=== PATIENT | male | born 1965 | race Caucasian/White ===

== ENCOUNTER → 2018-02-02 10:16 | Outpatient (CLI) | payer OTHER, MEDICAID, SELFPAY ==
[2018-02-02 10:59] LABS: Add Manual Diff / Slide Review NO; Appearance Urine UA CLEAR; Basophils Percent Auto 0.6 % (0-2); Bilirubin Urine UA NEGATIVE (NEGATIVE); Color Urine UA YELLOW; Eosinophils Percent Auto 0.9 % (2-4); Glucose Urine UA NEGATIVE (Normal); Hematocrit 41.7 % (41-53); Hemoglobin 14.5 g/dL (13.5-17.5); Ketones Urine UA TRACE (NEGATIVE); Leukocyte Esterase Urine UA TRACE (NEGATIVE); Lymphocytes Percent Auto 10.6 % (25-40); Mean Corpuscular HGB Conc 34.8 % (30-36); Mean Corpuscular Hemoglobin 34.6 PG (26-34); Mean Corpuscular Volume 99.4 fL (80-100); Monocytes Percent Auto 13.7 % (3-14); Neutrophils Absolute Auto 8800 /uL (3000-5900); Neutrophils Percent Auto 74.2 % (50-75); Nitrite Urine UA Negative (Negative); Occult Blood Urine UA NEGATIVE (Negative); Platelet Count 58 X10^3/uL (150-400); Protein Urine UA NEGATIVE (Negative); Red Blood Cell Count 4.19 X10^6/uL (4.5-5.9); White Blood Cell Count 11.8 X10^3/uL (4.5-11.0); pH Urine UA 5.5 (4.5-8.0)
[2018-02-02 11:05] LABS: Bacteria Urine None Seen; INR 1.3 (0.9-1.3); Prothrombin Time 13.7 SECONDS (10.1-12.7); RBC Urine None Seen (0-5/HPF); WBC Urine None Seen (0-5/HPF)
[2018-02-02 11:06] LABS: Culture Indicated Urine Cult Not Indicated
[2018-02-02 11:07] LABS: Ammonia (NH3) < 9.0 umol/L (9-30)
[2018-02-02 11:28] LABS: Alanine Aminotransferase 30 IU/L (21-72); Albumin 4.6 g/dL (3.5-5.0); Albumin Globulin Ratio 0.9 (1.0-2.8); Alkaline Phosphatase 131 U/L (38-126); Aspartate Aminotransferase 111 IU/L (17-59); BUN Creatinine Ratio 13.3 (6-22); Bilirubin Total 2.4 mg/dL (0.2-1.3); Blood Urea Nitrogen 8 mg/dL (9-20); Calcium 9.7 mg/dL (8.4-10.2); Carbon Dioxide 28 mmol/L (22-32); Chloride 98 mmol/L (98-107); Cholesterol 190 mg/dL (140-199); Estimated Glomerular Filt Rate > 60.0 mL/min (>60); Globulin 5.4 g/dL (1.7-4.1); Glucose 114 mg/dL (70-100); HDL Cholesterol 45 mg/dL (40-60); HEMOLYSIS < 15 (0-50); LDL Cholesterol Calculated 118 mg/dL (<100); Potassium 4.6 mmol/L (3.4-5.1); Sodium 142 mmol/L (137-145); Triglycerides 134 mg/dL (35-150)
== END ==
PROVIDERS: Family Provider Family Medicine; PCP Family Medicine; Visit Provider Family Medicine
DX: F10.20 Alcohol dependence, uncomplicated (principal); I10 Essential (primary) hypertension; Z51.81 Encounter for therapeutic drug level monitoring
CPT/HCPCS: 80053; 80061; 81003; 81015; 82140; 85025; 85610

== ENCOUNTER → 2018-04-27 13:01 | Outpatient (CLI) | payer OTHER, MEDICAID, SELFPAY ==
--- NOTE | 2018-04-27 13:03 | DI.ECHO.S_ITS ---
[place] [facility]---------+ [facility] +---------+ : : [address] : [address] : : : : [id number] : : : : Phone: [phone] Echocardiogram Report + + :Name: SHELLI DELGADO Study Date: 04/27/2018 Height: 66 in : :[facility] Exam Location: IS Weight: 120 lb: : Gender: Male BSA: 1.6 m2 : :: 1965 Age: 53 yrs BP: 98/62 mmHg: :Reason For Study: CHEST PAIN : :Ordering Physician: Ashley : :Simon Performed By: Sena Buck : :Referring: ASHLEY PENALOZA : + + Interpretation Summary The left ventricle is normal in size, wall thickness, and systolic function without any focal wall motion abnormalities. The ejection fraction is estimated to be 60-65%. The right ventricle is normal in size and function. No significant valvular pathology seen. Procedure: A two-dimensional transthoracic echocardiogram with color flow and Doppler was performed. The study quality was technically good. There is no prior echocardiogram noted for this patient. The patient was in normal sinus rhythm during the exam. Left Ventricle: The left ventricle is normal in size, wall thickness, and systolic function without any focal wall motion abnormalities. There is no thrombus. The ejection fraction is estimated to be 60-65%. Diastolic parameters suggest probable normal left ventricular diastolic function and normal filling pressures. Right Ventricle: The right ventricle is normal in size and function. Atria: The left atrium is borderline dilated. The right atrium is normal in size. There is no Doppler evidence for an interatrial shunt. Mitral Valve: The mitral valve is normal. There is trace mitral regurgitation. Aortic Valve: The aortic valve opens well. The aortic valve is slightly calcified. There is no aortic valve stenosis. No aortic regurgitation is present. Tricuspid Valve: The tricuspid valve is normal. There is trace tricuspid regurgitation. The right ventricular systolic pressure is estimated to be at least 24 mmHg based on an estimated right atrial pressure of 3 mm Hg. Pulmonic Valve: The pulmonic valve leaflets are thin and pliable; valve motion is normal. There is trace pulmonic regurgitation. Great Vessels: The aortic root is normal size. The ascending aorta is normal in size. The aortic arch could not be visualized. The pulmonary artery is normal size. The IVC is of normal diameter and collapses greater than 50% with a sniff. This suggests a low right atrial pressure of 3 mm Hg. Pericardium/ Pleura There is no pericardial effusion. There is no pleural effusion. MMode/2D Measurements & Calculations LVIDd: 4.3 cm LVOT diam: 2.1 cm LVIDs: 2.8 cm Ao root diam: 3.7 cm FS: 34.7 % asc Aorta Diam: 3.2 cm EPSS: 0.25 cm IVSd: 0.74 cm LVPWd: 0.83 cm LV barfield. diameter/BSA (cm/m^2): 2.7 LV sys. diameter/BSA (cm/m^2): 1.7 LA A2 area: 21.7 cm2 RA long axis: 4.5 cm LA A4 area: 16.5 cm2 RA area: 13.4 cm2 LA length (vol): 5.2 cm RA vol: 33.6 ml LA vol: 58.4 ml RA : 20.9 ml/m2 LA vol index: 36.3 ml/m2 IVC diam: 1.9 cm RVD1 (basal): 3.3 cm RVD2 (mid): 2.6 cm TAPSE: 2.3 cm Doppler Measurements & Calculations Ao V2 max: 94.9 cm/sec LVOT Max George: 96.8 cm/sec Ao V2 mean: 58.6 cm/sec LV V1 max P.7 mmHg Ao max P.6 mmHg LV V1 VTI: 18.2 cm Ao mean P.7 mmHg BILL(I,D): 3.4 cm2 Ao V2 VTI: 17.9 cm BILL(V,D): 3.5 cm2 sev ratio: 1.0 BILL indexed to BSA (cm^2/m^2): 2.1 MV E max george: 76.4 cm/sec TR max george: 228.7 cm/sec MV A max george: 65.1 cm/sec TR max P.9 mmHg MV E/A: 1.2 PA V2 max: 74.2 cm/sec Med Peak E' George: 9.6 cm/sec PA V2 mean: 51.6 cm/sec E/E' med: 8.0 PA mean P.2 mmHg Lat Peak E' George: 13.3 cm/sec PA pr(Accel): 9.1 mmHg E/E' lat: 5.8 E/e' average: 6.9 MV dec time: 0.27 sec MV P1/2t: 78.8 msec MV P1/2t max george: 76.0 cm/sec MVA(P1/2t): 2.8 cm2 Reading Physician:RICHA
== END ==
PROVIDERS: Family Provider Family Medicine; PCP Family Medicine; Visit Provider Family Medicine
DX: R07.9 Chest pain, unspecified (principal)
CPT/HCPCS: C8929; Q9957

== ENCOUNTER → 2018-11-16 08:34 | Outpatient (CLI) | payer OTHER, MEDICAID, SELFPAY ==
[2018-11-16 09:33] LABS: Hemoglobin 12.4 g/dL (13.5-17.5); Mean Corpuscular HGB Conc 34.6 % (30-36); Mean Corpuscular Hemoglobin 34.6 PG (26-34); Mean Corpuscular Volume 100.1 fL (80-100); Platelet Count 64 X10^3/uL (150-400); Red Blood Cell Count 3.59 X10^6/uL (4.5-5.9); Red Cell Distribution Width 14.2 % (11.6-14.8); White Blood Cell Count 7.5 X10^3/uL (4.5-11.0)
[2018-11-16 09:41] LABS: INR 1.4 (0.9-1.3); Prothrombin Time 15.8 SECONDS (10.1-12.7)
[2018-11-16 09:44] LABS: PTT Partial Thromboplastin Tim 38 SECONDS (26.4-36.2)
[2018-11-16 09:47] LABS: Alanine Aminotransferase 24 IU/L (21-72); Albumin 3.6 g/dL (3.5-5.0); Albumin Globulin Ratio 0.8 (1.0-2.8); Alkaline Phosphatase 135 U/L (38-126); Aspartate Aminotransferase 93 IU/L (17-59); BUN Creatinine Ratio 6.7 (6-22); Bilirubin Total 1.8 mg/dL (0.2-1.3); Blood Urea Nitrogen 4 mg/dL (9-20); Calcium 8.1 mg/dL (8.4-10.2); Carbon Dioxide 27 mmol/L (22-32); Chloride 102 mmol/L (98-107); Estimated Glomerular Filt Rate > 60.0 mL/min (>60); Globulin 4.6 g/dL (1.7-4.1); Glucose 99 mg/dL (70-100); HEMOLYSIS < 15 (0-50); Potassium 3.7 mmol/L (3.4-5.1); Sodium 140 mmol/L (137-145); Total Protein 8.2 g/dL (6.3-8.2)
== END ==
PROVIDERS: PCP Family Medicine; Visit Provider Nurse Practitioner Family
DX: K42.0 Umbilical hernia with obstruction, without gangrene (principal)
CPT/HCPCS: 36415; 80053; 85027; 85610; 85730

== ENCOUNTER → 2018-11-20 07:15 | Outpatient (CLI) | payer OTHER, MEDICAID, SELFPAY ==
--- NOTE | 2018-11-20 07:17 | DI.US.S_ITS ---
PROCEDURE: US ABDOMEN LIMITED INDICATIONS: EVALUATE UMBILICAL HERNIA TECHNIQUE: Real-time focused scanning was performed of the abdomen, with image documentation. COMPARISON: [facility], US, ABDOMEN COMPLETE, 07/13/2016, 8:43. [facility], US, ABDOMEN COMPLETE, 09/19/2016, 8:19. FINDINGS: There is a moderate-sized paraumbilical hernia with the hernia neck measuring 5.4 mm. There is a ascitic fluid within the hernia sac. A bowel loop is seen extruding into the hernia sac with Valsalva with the patient upright. There is moderate amount of ascites. IMPRESSION: 1. Periumbilical hernia is present containing ascites. With Valsalva, there is a loop of bowel extruding into the hernia. The hernia neck measures 5.4 mm. 2. Moderate amount of ascites. Dictated by: Ping Soalres M.D. on 11/20/2018 at 8:53 Approved by: Ping Solares M.D. on 11/20/2018 at 8:58
== END ==
PROVIDERS: PCP Family Medicine; Visit Provider Nurse Practitioner Family
DX: K42.0 Umbilical hernia with obstruction, without gangrene (principal); R18.8 Other ascites
CPT/HCPCS: 76705

== ENCOUNTER → 2019-02-26 16:52 | Outpatient (CLI) | payer OTHER, MEDICAID, SELFPAY ==
[2019-02-26 17:25] LABS: Hematocrit 32.7 % (41-53); Hemoglobin 11.1 g/dL (13.5-17.5); Mean Corpuscular HGB Conc 33.9 % (30-36); Mean Corpuscular Hemoglobin 34.9 PG (26-34); Mean Corpuscular Volume 102.9 fL (80-100); Platelet Count 66 X10^3/uL (150-400); Red Blood Cell Count 3.18 X10^6/uL (4.5-5.9); Red Cell Distribution Width 15.5 % (11.6-14.8)
[2019-02-26 17:39] LABS: Alanine Aminotransferase 26 IU/L (21-72); Albumin 3.6 g/dL (3.5-5.0); Albumin Globulin Ratio 0.7 (1.0-2.8); Alkaline Phosphatase 133 U/L (38-126); Amylase 72 U/L (30-110); Aspartate Aminotransferase 125 IU/L (17-59); BUN Creatinine Ratio 7.1 (6-22); Bilirubin Total 3.7 mg/dL (0.2-1.3); Blood Urea Nitrogen 5 mg/dL (9-20); Calcium 8.3 mg/dL (8.4-10.2); Carbon Dioxide 27 mmol/L (22-32); Chloride 93 mmol/L (98-107); Estimated Glomerular Filt Rate > 60.0 mL/min (>60); Globulin 5.1 g/dL (1.7-4.1); Glucose 116 mg/dL (70-100); HEMOLYSIS < 15 (0-50); Lipase 273 U/L (23-300); Potassium 3.1 mmol/L (3.4-5.1); Sodium 133 mmol/L (137-145); Total Protein 8.7 g/dL (6.3-8.2)
[2019-02-26 17:47] LABS: Macrocytosis 1+; Neutrophils Absolute Manual 6700 /uL (3000-5900); Total Cells Counted 100
[2019-02-26 17:48] LABS: Platelet Estimate Decreased on smear
[2019-02-26 17:56] LABS: Appearance Urine UA CLEAR; Bilirubin Urine UA 2+ (NEGATIVE); Color Urine UA YELLOW; Glucose Urine UA TRACE g/dL (Negative); Ketones Urine UA TRACE (NEGATIVE); Leukocyte Esterase Urine UA NEGATIVE (NEGATIVE); Nitrite Urine UA NEGATIVE (Negative); Occult Blood Urine UA NEGATIVE (Negative); Protein Urine UA NEGATIVE (Negative); Urobilinogen Urine UA 0.2 E.U./dL (0.2); pH Urine UA 5.5 (4.5-8.0)
[2019-02-26 17:57] LABS: Ictotest Urine Negative (Negative)
[2019-02-28 14:24] LABS: Alpha Fetoprotein 5.9 ng/mL (< 6.1)
== END ==
PROVIDERS: PCP Family Medicine; Visit Provider Family Medicine
DX: F10.20 Alcohol dependence, uncomplicated (principal); K42.0 Umbilical hernia with obstruction, without gangrene; R18.8 Other ascites
CPT/HCPCS: 36415; 80053; 81003; 82105; 82140; 82150; 83690; 85025

== ENCOUNTER → 2019-03-06 10:56 | Outpatient (CLI) | payer OTHER, MEDICAID, SELFPAY ==
--- NOTE | 2019-03-06 11:55 | DI.CT.S_ITS ---
PROCEDURE: CT ABDOMEN PELVIS W CON INDICATIONS: Hernia TECHNIQUE: After the administration of oral and intravenous contrast, 5 mm thick sections acquired from the diaphragms to the symphysis. 5 mm thick coronal and sagittal reformats were performed. For radiation dose reduction, the following was used: automated exposure control, adjustment of mA and/or kV according to patient size. COMPARISON: [facility], , ABDOMEN LIMITED, 11/20/2018, 7:27. FINDINGS: Image quality: Excellent. ABDOMEN: Lung bases: Lung bases are clear. Heart size is normal. Solid organs: Liver is relatively small in size and mildly heterogeneous in enhancement. Nodular margination along the liver borders indicates likelihood of cirrhosis and portal hypertension. 4 quadrant ascites. Gallbladder appears contracted. Biliary system is non-dilated. Pancreas enhances normally. Spleen is normal in size and enhancement. No adrenal nodules. Kidneys are normal in size and enhancement, without hydronephrosis. Peritoneum and bowel: Stomach, small bowel, and colon loops are normal in caliber and wall thickness. No free air. There is moderate ascites throughout the abdomen and pelvis. Slight peritoneal enhancement and thickening is associated. Nodes and vessels: No retroperitoneal or mesenteric adenopathy. Aorta and inferior vena cava are normal in caliber. Miscellaneous: No ventral hernia except for a paraumbilical ovoid fluid collection consistent with a small fluid containing peritoneal hernia at that site. PELVIS: Genitourinary: Bladder wall thickness is normal. Miscellaneous: No inguinal hernias or adenopathy. Bones: No suspicious bony lesions. No vertebral body compression fractures. IMPRESSION: Cirrhosis and portal hypertension is likely present, given the pattern of nodular margination along the liver borders and ascites, and also collateral varices within the upper abdomen best seen in the perisplenic space. The spleen itself is not enlarged, however. Through the abdomen and pelvis a definite focus of infection or neoplasm is not seen. As noted there is a mild degree of peritoneal enhancement and thickening but frequently seen in the setting of cirrhotic ascites. 4 quadrant ascites, small periumbilical fluid containing hernia. Dictated by: Nasim Granados M.D. on 03/06/2019 at 15:15 Approved by: Nasim Granados M.D. on 03/06/2019 at 15:19
== END ==
PROVIDERS: PCP Family Medicine; Visit Provider Family Medicine
DX: K42.9 Umbilical hernia without obstruction or gangrene (principal); R18.8 Other ascites
CPT/HCPCS: 74177; Q9967

== ENCOUNTER 2019-04-20 00:55 | Emergency (ER) | payer OTHER, MEDICAID, SELFPAY ==
[2019-04-20] VITALS (9 sets, daily range): BP systolic 88–104; BP diastolic 58–66; PULSE 82–88; RESP 14–18; TEMP 36.1; O2SAT 94–97
[2019-04-20] MEDS: ONDANSETRON 4 MG/2 ML INJ IV (01:28)
[2019-04-20] MEDS: PANTOPRAZOLE 40 MG VIAL 80 MG IV (01:29)
--- NOTE | 2019-04-20 01:34 | DI.US.S_ITS ---
PROCEDURE: US ABDOMEN COMPLETE INDICATIONS: CIRRHOSIS/ASCITIES TECHNIQUE: Real-time scanning was performed of the abdominal and retroperitoneal organs, with image documentation. COMPARISON: [facility], US, ABDOMEN COMPLETE, 09/19/2016, 8:19. [facility], US, US ABDOMEN LIMITED, 11/20/2018, 7:27. [facility], CT, CT ABDOMEN PELVIS W CON, 03/06/2019, 11:58. FINDINGS: Liver: The liver is echogenic and heterogeneous in appearance with a nodular contour consistent with cirrhosis. Gallbladder: No gallstones or pericholecystic fluid. The gallbladder is incompletely distended with slight wall thickening which may be due to incomplete distention as well as possible sequelae of liver disease. Biliary ducts: Intrahepatic bile ducts are non-dilated. Extrahepatic bile duct caliber measures up to 5 mm. Normal is 6-7 mm or less in diameter, or 10 mm or less post-cholecystectomy. Pancreas: Not well-seen.. Spleen: Spleen is normal in size and homogeneous in echotexture. Kidneys: Right kidney measures 9.9 cm long; left kidney measures 10.8 cm long. No hydronephrosis. Aorta: Not well visualized. Iliacs: Not well visualized. IVC: Not well-visualized. Miscellaneous: There is moderate ascites with fluid visualized in all 4 quadrants. IMPRESSION: 1. Nodular cirrhotic liver redemonstrated with moderate ascites visualized in all 4 quadrants. Dictated by: Fidencio Dodd M.D. on 04/20/2019 at 7:40 Approved by: Fidencio Dodd M.D. on 04/20/2019 at 7:46
[2019-04-20 02:03] LABS: Add Manual Diff / Slide Review NO; Basophils Absolute Auto 400 /uL (0-100); Basophils Percent Auto 4.3 % (0-2); Eosinophils Absolute Auto 300 /uL (0-450); Eosinophils Percent Auto 3.5 % (2-4); Hematocrit 36.2 % (41-53); Hemoglobin 12.8 g/dL (13.5-17.5); Lymphocytes Absolute Auto 1900 /uL (1100-4500); Lymphocytes Percent Auto 21.8 % (25-40); Mean Corpuscular HGB Conc 35.3 % (30-36); Mean Corpuscular Hemoglobin 35.7 PG (26-34); Mean Corpuscular Volume 101.1 fL (80-100); Monocytes Absolute Auto 1400 /uL (0-900); Monocytes Percent Auto 15.9 % (3-14); Neutrophils Absolute Auto 4900 /uL (1500-7000); Neutrophils Percent Auto 54.5 % (50-75); Platelet Count 78 X10^3/uL (150-400); Red Blood Cell Count 3.59 X10^6/uL (4.5-5.9); Red Cell Distribution Width 14.5 % (11.6-14.8); White Blood Cell Count 8.9 X10^3/uL (4.5-11.0)
[2019-04-20 02:04] LABS: Lactate (Lactic Acid) 1.4 mmol/L (0.7-2.1)
[2019-04-20 02:05] LABS: Alanine Aminotransferase 19 IU/L (21-72); Albumin 3.9 g/dL (3.5-5.0); Albumin Globulin Ratio 0.7 (1.0-2.8); Alkaline Phosphatase 154 U/L (38-126); Aspartate Aminotransferase 97 IU/L (17-59); Bilirubin Total 1.7 mg/dL (0.2-1.3); Blood Urea Nitrogen 6 mg/dL (9-20); Calcium 8.7 mg/dL (8.4-10.2); Carbon Dioxide 30 mmol/L (22-32); Chloride 94 mmol/L (98-107); Estimated Glomerular Filt Rate > 60.0 mL/min (>60); Globulin 5.3 g/dL (1.7-4.1); Glucose 115 mg/dL (70-100); HEMOLYSIS < 15 (0-50); Potassium 3.5 mmol/L (3.4-5.1); Sodium 137 mmol/L (137-145); Total Protein 9.2 g/dL (6.3-8.2)
[2019-04-20 02:21] LABS: Ethanol (ETOH) 393 mg/dL
--- NOTE | 2019-04-20 02:22 | ED_ITS ---
HPI - GI Bleed General Chief complaint: GI Bleed Stated complaint: STATES HEMORRAGING FROM RECTUM Time Seen by Provider: 04/20/19 01:00 Source: patient Mode of arrival: Ambulatory Limitations: no limitations History of Present Illness HPI Narrative: 54-year-old male smoker, heavy drinker and known cirrhotic presents with significant bright red bleeding per rectum over the course of the past day or 2. He has become quite fatigued and is dizzy and lightheaded upon standing. He denies use of any blood thinners. He denies any history of significant gastrointestinal bleeding. He denies any red vomit or dark and tarry stool. He does state that he has had colonoscopies in the past which have noted what he thinks were polyps that were fixed. He denies much in the way of significant pain. He has had no fever or chills. He denies vomiting but has been nauseated. MD complaint: gross hematochezia Onset (ago): day(s) Pain Consistency: intermittent Severity: mild Relieving factors: none Exacerbating factors: none Context: liver disease and alcohol abuse Associated symptoms: nausea Treatments Prior to Arrival: none Related Data Home Medications Medication Instructions Recorded Confirmed spironolactone [Aldactone] 100 mg PO QDAY #0 12/07/16 11/30/18 acetaminophen 300 mg-codeine 30 mg 1 tab PO QHS PRN tab 11/15/18 11/30/18 tablet Previous Rx's Medication Instructions Recorded ferrous sulfate 325 mg (65 mg 325 mg PO BID #60 tab 08/27/18 iron) tablet tramadol 50 mg tablet 50 mg PO DAILY #30 tab 11/30/18 furosemide 40 mg tablet 40 mg PO QDAY #30 tab 02/07/19 potassium chloride 10 mEq 10 meq PO BID #20 cap 02/27/19 capsule,extended release metoprolol succinate 50 mg 50 mg PO DAILY #90 tab 04/09/19 tablet,extended release 24 hr Allergies Allergy/AdvReac Type Severity Reaction Status Date / Time tree and shrub pollen Allergy Unknown watery Verified 11/30/18 15:06 eyes, runny nose Review of Systems Constitutional Constitutional: Denies chills, Denies fatigue, Denies fever(s), Denies frequent falls, Denies lethargy, Reports poor appetite and Denies weakness Eyes Eyes: Denies change in vision, Denies eye discharge, Denies irritation and Denies loss of vision ENT Ears, Nose, Mouth, and Throat: Denies change in voice, Denies dizziness, Denies neck pain, Denies sore throat and Denies throat swelling Cardiovascular Cardiovascular: Denies chest pain, Denies irregular heart rhythm, Denies lightheadedness, Denies palpitations, Denies dyspnea, Denies dyspnea on exertion and Denies orthopnea Respiratory Respiratory: Denies cough, Denies dyspnea, Denies dyspnea on exertion and Denies wheezing Gastrointestinal Gastrointestinal: Denies abdominal pain, Reports hematochezia, Denies change in bowel habits, Denies diarrhea, Denies nausea and Denies vomiting Genitourinary Genitourinary: Denies hematuria, Denies flank pain, Denies urinary incontinence and Denies urinary urgency Musculoskeletal Musculoskeletal: Denies back pain, Denies muscle weakness, Denies neck pain, Denies numbness and Denies tingling Integumentary/Breasts Skin/Breast: Denies pruritus, Denies erythema, Denies rash and Denies wounds Neurologic Neurologic: Denies behavioral changes, Denies confusion, Denies dizziness, Denies frequent falls, Denies loss of vision, Denies numbness, Denies tingling and Denies weakness Psychiatric Psychiatric: Denies anxiety, Denies behavioral changes, Denies confusion, Denies depression, Denies homicidal ideation and Denies suicidal ideation Endocrine Endocrine: Denies fatigue, Denies flushing and Denies palpitations Hematologic/Lymphatic Hematologic/Lymphatic: Denies easy bruising Allergic/Immunologic Allergic/Immunologic: Denies urticaria, Denies throat swelling and Denies wheezing [facility] Medical History Chronic back pain (Chronic Unknown) Cirrhosis of liver (Chronic Unknown) COPD (chronic obstructive pulmonary disease) (Chronic Unknown) DDD (degenerative disc disease), lumbar (Chronic Unknown) Eczema (Chronic Unknown) ETOH abuse (Chronic Unknown) Hx of fracture of foot (Resolved ~1982) Hypertension (Chronic Unknown) Liver disease (Chronic Unknown) Surgical History Status post ORIF of fracture of ankle (Resolved ~1986) Family History (Updated 03/15/16 @ 00:00 by Ankit Mckinnon RN) Father Age: 80 Colon cancer Mother Age: 77 Back pain, unspecified back location, unspecified back pain laterality, unspecified chronicity Brother No problems noted. Social History Smoking Status: Current every day smoker Tobacco: How many years used: 35 alcohol intake: current (6-8 ) substance use type: does not use Family History Father Age: 80 Colon cancer Mother Age: 77 Back pain, unspecified back location, unspecified back pain laterality, unspecified chronicity Brother No problems noted. Social History Smoking Status: Current every day smoker Tobacco: How many years used: 35 alcohol intake: current (6-8 ) substance use type: does not use Exam Narrative Exam Narrative: GENERAL: [54-year-old] year old patient appears stated age. Chronically ill, appears unwell. Temporal wasting HEAD: Atraumatic. Normocephalic. EYES: Pupils equal round and reactive. Extraocular motions intact. No scleral icterus. No injection or drainage. ENT: Nose without bleeding, purulent drainage. Throat without erythema, tonsillar hypertrophy or exudate. Airway patent. NECK: Trachea midline. Non tender CARDIOVASCULAR: Regular rate and rhythm without murmurs, gallops, or rubs. RESPIRATORY: Clear to auscultation. Breath sounds equal bilaterally. No wheezes, rales, or rhonchi. GASTROINTESTINAL: Ascites, no warmth, significant pain or erythema, easily reducible umbilical hernia Abdomen soft, non-tender, nondistended. RECTAL: bright red active bleeding, brisk. EXTREMITIES: No edema or joint tenderness. BACK: Nontender without deformity or crepitance. No flank tenderness. NEURO: AOx3. SKIN: No rash or erythema of visible areas Initial Vital Signs Initial Vital Signs: Vital Signs Temperature 97 F L 04/20/19 01:01 Pulse Rate 84 04/20/19 01:01 Respiratory Rate 18 04/20/19 01:01 Blood Pressure 103/63 04/20/19 01:01 Pulse Oximetry 97 04/20/19 01:01 Course Orders Ordered: ED Orders 04/20/19 01:30 Complete Blood Count AUTO DIFF Stat Comprehensive Metabolic Panel Stat Ethanol (ETOH) Stat Lactate (Lactic Acid) Stat Partial Thromboplastin Time Stat Prothrombin Time INR Stat Type and Screen Stat 04/20/19 01:34 US abdomen complete Stat 04/20/19 02:50 Hemoglobin and Hematocrit Stat Pantoprazole Sodium 80 mg/ (Sodium Chloride) 100 mls @ 10 mls/hr IV CONT ROSE Last Admin: 04/20/19 03:55 Dose: 8 mg/hr, 10 mls/hr Documented by: ELYSE Octreotide Acetate 500 mcg/ (Sodium Chloride) 101 mls @ 5.05 mls/hr IV CONT ROSE; Protocol Last Admin: 04/20/19 03:57 Dose: 25 mcg/hr, 5.05 mls/hr Documented by: ELYSE Discontinued Medications Ceftriaxone Sodium/Dextrose (Rocephin) 1 gm in 50 mls @ 100 mls/hr IV NOW ONE Stop: 04/20/19 03:15 Last Infusion: 04/20/19 03:42 Dose: 100 mls/hr Documented by: Admin: 04/20/19 03:10 Dose: 100 mls/hr Documented by: ELYSE Nicotine (Nicoderm) 21 mg TOP NOW ONE Stop: 04/20/19 03:54 Octreotide Acetate (Sandostatin) 50 mcg IV NOW ONE Stop: 04/20/19 02:47 Last Admin: 04/20/19 03:11 Dose: 50 mcg Documented by: ELYSE Ondansetron HCl (Zofran) 4 mg IV NOW ONE Stop: 04/20/19 01:18 Last Admin: 04/20/19 01:28 Dose: 4 mg Documented by: ELYSE Pantoprazole Sodium (Protonix) 80 mg IV NOW ONE Stop: 04/20/19 01:18 Last Admin: 04/20/19 01:29 Dose: 80 mg Documented by: ELYSE Consultations Consultation #1: discussion with Gen Surgery. Given etoh hx, known cirrhosis he will require transfer to facility with GI, platelets etc. Consultation #2: Dr. Schwarz happy to accept on his service. He will contact GI later in the morning awaiting GI consult Vital Signs Vital signs: Vital Signs - 8 hr 04/20/19 01:01 04/20/19 03:12 Temperature 97 F L Pulse Rate 84 85 Respiratory Rate 18 18 Blood Pressure 103/63 Blood Pressure [Left Arm] 99/65 Pulse Oximetry 97 96 MDM - GI Bleed Lab Data Result diagrams: 04/20/19 02:50 04/20/19 01:30 Labs: Lab Results 04/20/19 04/20/19 04/20/19 Range/Units 01:30 01:30 01:30 WBC 8.9 (4.5-11.0) X10^3/uL RBC 3.59 L (4.5-5.9) X10^6/uL Hgb 12.8 L (13.5-17.5) g/dL Hct 36.2 L (41-53) % MCV 101.1 H (80-100) fL MCH 35.7 H (26-34) PG MCHC 35.3 (30-36) % RDW 14.5 (11.6-14.8) % Plt Count 78 L (150-400) X10^3/uL Neut % (Auto) 54.5 (50-75) % Lymph % (Auto) 21.8 L (25-40) % [place] % (Auto) 15.9 H (3-14) % Eos % (Auto) 3.5 (2-4) % Baso % (Auto) 4.3 H (0-2) % Neut # (Auto) 4900 (2979-9175) /uL Lymph # (Auto) 1900 (4667-1268) /uL [place] # (Auto) 1400 H (0-900) /uL Eos # (Auto) 300 (0-450) /uL Baso # (Auto) 400 H (0-100) /uL PT 16.7 H (10.1-12.7) SECONDS INR 1.4 H (0.9-1.3) APTT 40 H D (26.4-36.2) SECONDS Sodium 137 (137-145) mmol/L Potassium 3.5 (3.4-5.1) mmol/L Chloride 94 L (98-107) mmol/L Carbon Dioxide 30 (22-32) mmol/L BUN 6 L (9-20) mg/dL Creatinine 0.50 L (0.66-1.25) mg/dL Estimated GFR > 60.0 (>60) mL/min BUN/Creatinine Ratio 12.0 (6-22) Glucose 115 H (70-100) mg/dL Lactate (0.7-2.1) mmol/L Calcium 8.7 (8.4-10.2) mg/dL Total Bilirubin 1.7 H (0.2-1.3) mg/dL AST 97 H (17-59) IU/L ALT 19 L (21-72) IU/L Alkaline Phosphatase 154 H (38-126) U/L Total Protein 9.2 H (6.3-8.2) g/dL Albumin 3.9 (3.5-5.0) g/dL Globulin 5.3 H (1.7-4.1) g/dL Albumin/Globulin Ratio 0.7 L (1.0-2.8) Ethyl Alcohol ( - 10) mg/dL Blood Type Antibody Screen 04/20/19 04/20/19 04/20/19 Range/Units 01:30 01:30 01:30 WBC (4.5-11.0) X10^3/uL RBC (4.5-5.9) X10^6/uL Hgb (13.5-17.5) g/dL Hct (41-53) % MCV (80-100) fL MCH (26-34) PG MCHC (30-36) % RDW (11.6-14.8) % Plt Count (150-400) X10^3/uL Neut % (Auto) (50-75) % Lymph % (Auto) (25-40) % [place] % (Auto) (3-14) % Eos % (Auto) (2-4) % Baso % (Auto) (0-2) % Neut # (Auto) (7425-7850) /uL Lymph # (Auto) (9238-7606) /uL [place] # (Auto) (0-900) /uL Eos # (Auto) (0-450) /uL Baso # (Auto) (0-100) /uL PT (10.1-12.7) SECONDS INR (0.9-1.3) APTT (26.4-36.2) SECONDS Sodium (137-145) mmol/L Potassium (3.4-5.1) mmol/L Chloride (98-107) mmol/L Carbon Dioxide (22-32) mmol/L BUN (9-20) mg/dL Creatinine (0.66-1.25) mg/dL Estimated GFR (>60) mL/min BUN/Creatinine Ratio (6-22) Glucose (70-100) mg/dL Lactate 1.4 (0.7-2.1) mmol/L Calcium (8.4-10.2) mg/dL Total Bilirubin (0.2-1.3) mg/dL AST (17-59) IU/L ALT (21-72) IU/L Alkaline Phosphatase (38-126) U/L Total Protein (6.3-8.2) g/dL Albumin (3.5-5.0) g/dL Globulin (1.7-4.1) g/dL Albumin/Globulin Ratio (1.0-2.8) Ethyl Alcohol 393 H ( - 10) mg/dL Blood Type O Positive Antibody Screen Negative 04/20/19 Range/Units 02:50 WBC (4.5-11.0) X10^3/uL RBC (4.5-5.9) X10^6/uL Hgb 11.9 L (13.5-17.5) g/dL Hct 34.1 L (41-53) % MCV (80-100) fL MCH (26-34) PG MCHC (30-36) % RDW (11.6-14.8) % Plt Count (150-400) X10^3/uL Neut % (Auto) (50-75) % Lymph % (Auto) (25-40) % [place] % (Auto) (3-14) % Eos % (Auto) (2-4) % Baso % (Auto) (0-2) % Neut # (Auto) (9183-1457) /uL Lymph # (Auto) (9300-8761) /uL [place] # (Auto) (0-900) /uL Eos # (Auto) (0-450) /uL Baso # (Auto) (0-100) /uL PT (10.1-12.7) SECONDS INR (0.9-1.3) APTT (26.4-36.2) SECONDS Sodium (137-145) mmol/L Potassium (3.4-5.1) mmol/L Chloride (98-107) mmol/L Carbon Dioxide (22-32) mmol/L BUN (9-20) mg/dL Creatinine (0.66-1.25) mg/dL Estimated GFR (>60) mL/min BUN/Creatinine Ratio (6-22) Glucose (70-100) mg/dL Lactate (0.7-2.1) mmol/L Calcium (8.4-10.2) mg/dL Total Bilirubin (0.2-1.3) mg/dL AST (17-59) IU/L ALT (21-72) IU/L Alkaline Phosphatase (38-126) U/L Total Protein (6.3-8.2) g/dL Albumin (3.5-5.0) g/dL Globulin (1.7-4.1) g/dL Albumin/Globulin Ratio (1.0-2.8) Ethyl Alcohol ( - 10) mg/dL Blood Type Antibody Screen Critical Care Time Critical Care Time Critical Care Time: Yes Total Critical Care Time: 30 Attestation: The high probability of a clinically significant, sudden or life threatening deterioration of the [CV/GI] system(s) required my full and direct attention, intervention and personal management. The aggregate critical care time was [30] minutes. This time is in addition to time spent performing reported procedures but includes the following: [x] Data Review and interpretation [x] Patient assessment and monitoring of vital signs [x] Documentation [x] Medication orders and management Discharge Plan Departure Patient Disposition: [facility] Clinical Impression: Lower gastrointestinal hemorrhage, Thrombocytopenia Alcohol dependence Qualifiers: Substance use status: other alcohol-induced disorder Qualified Code(s): F10.288 - Alcohol dependence with other alcohol-induced disorder Prescriptions: No Action spironolactone [Aldactone] 100 MG tablet 100 mg PO QDAY Qty: 0 RF: 0 ferrous sulfate [Feosol] 325 mg (65 mg iron) tablet 325 mg PO BID Qty: 60 RF: 3 furosemide 40 mg tablet 40 mg PO QDAY Qty: 30 RF: 3 potassium chloride 10 mEq capsule, extended release 10 meq PO BID Qty: 20 RF: 0 metoprolol succinate [Toprol XL] 50 mg tablet extended release 24 hr 50 mg PO DAILY Qty: 90 RF: 1 acetaminophen-codeine 300-30 mg tablet 1 tab PO QHS PRNRF: 0 tramadol 50 mg tablet 50 mg PO DAILY Qty: 30 RF: 0 Referrals: Simon,Ashley, [Primary Care Provider] -
[2019-04-20] MEDS: CEFTRIAXONE 1 GM/50 ML FROZ.PIGGY IV (03:10)
[2019-04-20] MEDS: OCTREOTIDE 100 MCG/ML VIAL 50 MCG IV (03:11)
[2019-04-20 03:31] LABS: Hematocrit 34.1 % (41-53); Hemoglobin 11.9 g/dL (13.5-17.5)
[2019-04-20 03:40] LABS: INR 1.4 (0.9-1.3); Prothrombin Time 16.7 SECONDS (10.1-12.7)
[2019-04-20 03:42] LABS: PTT Partial Thromboplastin Tim 40 SECONDS (26.4-36.2)
[2019-04-20] MEDS: PANTOPRAZOLE 80 MG in SODIUM CHLORIDE 0.9% 100 ML 10 ML IV (03:55)
[2019-04-20] MEDS: OCTREOTIDE 500 MCG in SODIUM CHLORIDE 0.9% 100 ML 5.05 ML IV (03:57)
[2019-04-20] MEDS: NICOTINE 21 MG PATCH TOP (04:31)
--- NOTE | 2019-05-09 05:39 | PC.NURSE ---
Late Entry Pt received Sandostatin IV infusion started at 0357 at a rate of 5.05 mls/hr and still infusing at 0500 DC/Transfer from ED.
--- NOTE | 2019-05-09 06:15 | PC.NURSE ---
Late entry Pt transferred on 04/20/19 to [facility] with report given to AMISH Newton.
== END 2019-04-20 05:00 | disposition short-term general hospital (02) ==
PROVIDERS: Emergency Provider Emergency Medicine; PCP Family Medicine
DX: K92.2 Gastrointestinal hemorrhage, unspecified (principal); D69.6 Thrombocytopenia, unspecified; F10.288 Alcohol dependence with other alcohol-induced disorder
CPT/HCPCS: 36415; 76700; 80053; 80320; 83605; 85014; 85018; 85025; 85610; 85730; 86850; 86900; 86901; 96365; 96367; 96368; 96375; 99284; 99291; C9113; J2354; J2405

== ENCOUNTER 2019-05-13 17:41 | Emergency (ER) | payer OTHER, MEDICAID, SELFPAY ==
[2019-05-13 17:44] VITALS: BP 121/79; PULSE 84; RESP 20; TEMP 37.3; O2SAT 98
--- NOTE | 2019-05-13 19:16 | PC.NURSE ---
Pt yolandarts he had a roman placed at [facility] yesterday for acute retention. He reports he has been voiding around the roman and requested it removed. John WELLINGTON removed roman in triage and patient has since voided without complications. Pt denies further needs and asks to be discharged. Provider at bedside.
[2019-05-13 19:25] VITALS: BP 101/70; PULSE 86; RESP 181; O2SAT 94
--- NOTE | 2019-05-13 19:30 | ED_ITS ---
HPI - Male Genitourinary <JONAS Hastings - Last Filed: 05/13/19 19:34> General Chief complaint: Urogenital-Male Stated complaint: Wants a Cath removal, put in at [facility] 6 hrs ago Time Seen by Provider: 05/13/19 18:49 Source: patient Mode of arrival: Ambulatory Limitations: no limitations History of Present Illness HPI Narrative: The patient is a 54-year-old male current smoker with history of alcoholism who presents with a chief complaint of ?I want my Hutton catheter out.He states that it was placed by Urology at [facility] 6 hours ago, and since he has been urinating around his catheter. He states it was placed for urinary retention. He presents requesting had his Hutton catheter out. He denies any chest pain, shortness of breath, nausea vomiting or diarrhea. The patient had his Hutton catheter pulled by triage nurse, and does not have a catheter on my exam. He declines any further catheter or urinalysis and request to go home on my entering the room. Related Data Home Medications Medication Instructions Recorded Confirmed spironolactone [Aldactone] 100 mg PO QDAY #0 12/07/16 05/01/19 Previous Rx's Medication Instructions Recorded ferrous sulfate 325 mg (65 mg 325 mg PO BID #60 tab 08/27/18 iron) tablet nicotine 14 mg/24 hr daily 1 patch TRANSDERMAL DAILY #21 each 05/01/19 transdermal patch Allergies Allergy/AdvReac Type Severity Reaction Status Date / Time tree and shrub pollen Allergy Unknown watery Verified 05/01/19 09:01 eyes, runny nose Review of Systems <LEANNE Hastings - Last Filed: 05/13/19 19:34> Review of Systems Narrative: GENERAL: Denies chills, fatigue, malaise, fever, sweats. HEENT: Denies sinus pain, ear pain, sore throat, difficulty swallowing, dizziness. RESPIRATORY: Denies dyspnea, cough, wheezing, hemoptysis, sputum. CARDIOVASCULAR: Denies chest pain, palpitations, orthopnea, edema, GASTROINTESTINAL: Denies nausea, vomiting, abdominal pain, diarrhea, constipation, melena. : See HPI MUSCULOSKELETAL: denies weakness, joint pain, or bony pain SKIN: Denies rash, skin lesions, or other NEUROLOGIC: Denies weakness, headache, numbness, change in speech, confusion, seizures, incoordination. PSYCHIATRIC: No concerning psychosocial issues. 12 point review of systems is negative except for those stated above Patient History <LEANNE Hastings - Last Filed: 05/13/19 19:34> Medical History Chronic back pain (Chronic Unknown) Cirrhosis of liver (Chronic Unknown) COPD (chronic obstructive pulmonary disease) (Chronic Unknown) DDD (degenerative disc disease), lumbar (Chronic Unknown) Eczema (Chronic Unknown) ETOH abuse (Chronic Unknown) Hx of fracture of foot (Resolved ~1982) Hypertension (Chronic Unknown) Liver disease (Chronic Unknown) Surgical History Status post ORIF of fracture of ankle (Resolved ~1986) Family History Father Age: 80 Colon cancer Mother Age: 77 Back pain, unspecified back location, unspecified back pain laterality, unspecified chronicity Brother No problems noted. Social History Smoking Status: Current every day smoker Tobacco: How many years used: 35 alcohol intake: current substance use type: does not use alcohol intake frequency: 3 or more drinks per day Substance Use Type: does not use Exam <LEANNE Hastings - Last Filed: 05/13/19 19:34> Narrative Exam Narrative: GENERAL: Chronically ill-appearing male in no acute distress HEAD: Atraumatic. Normocephalic. No temporal or scalp tenderness. EYES: Pupils equal round and reactive. Extraocular motions intact. No scleral icterus. No injection or drainage. ENT: Nose without bleeding, purulent drainage or septal hematoma. Throat without erythema, tonsillar hypertrophy or exudate. Uvula midline. Airway patent. NECK: Trachea midline. No JVD or lymphadenopathy. Supple, nontender, no meningeal signs. CARDIOVASCULAR: Regular rate and rhythm RESPIRATORY: Coarse on expiration to auscultation. Breath sounds equal bilaterally. No wheezes, rales, or rhonchi. No increased respiratory effort. No accessory muscle use. EXTREMITIES: No clubbing, cyanosis, or edema. No joint tenderness, effusion, or edema noted. BACK: Nontender without deformity or crepitance. No flank tenderness. NEURO: AOx3. SKIN: No rash or erythema and visible skin Initial Vital Signs Initial Vital Signs: Vital Signs Temperature 99.1 F 05/13/19 17:44 Pulse Rate 84 05/13/19 17:44 Respiratory Rate 20 05/13/19 17:44 Blood Pressure 121/79 05/13/19 17:44 Pulse Oximetry 98 05/13/19 17:44 <Elaine Geiger DO - Last Filed: 05/14/19 00:18> Initial Vital Signs Initial Vital Signs: Vital Signs Temperature 99.1 F 05/13/19 17:44 Pulse Rate 84 05/13/19 17:44 Respiratory Rate 20 05/13/19 17:44 Blood Pressure 121/79 05/13/19 17:44 Pulse Oximetry 98 05/13/19 17:44 Course <LEANNE Hastings - Last Filed: 05/13/19 19:34> Vital Signs Vital signs: Vital Signs - 8 hr 05/13/19 17:44 05/13/19 19:25 Temperature 99.1 F Pulse Rate 84 86 Respiratory Rate 20 181 H Blood Pressure 121/79 101/70 Pulse Oximetry 98 94 <Elaine Geiger DO - Last Filed: 05/14/19 00:18> Vital Signs Vital signs: Vital Signs - 8 hr 05/13/19 17:44 05/13/19 19:25 Temperature 99.1 F Pulse Rate 84 86 Respiratory Rate 20 181 H Blood Pressure 121/79 101/70 Pulse Oximetry 98 94 MDM - Male Genitourinary <LEANNE Hastings - Last Filed: 05/13/19 19:34> MDM Narrative Medical decision making narrative: The patient is a 54-year-old male who presents with a chief complaint ?I want my Hutton catheter out.The Hutton catheter was removed by triage nurse prior to my exam. The patient's Hutton catheter was placed due to urinary retention. The patient adamantly refused any urinalysis, bladder scan and further workup. I discussed the possibility of having another catheter placed today retention any immediately declined. The patient requested go home. I discussed at length the importance of following up with primary care provider as well as his urologist. I discussed with the patient that I did not recommend he leave without ensuring that he could urinate well and empty his bladder fully. The patient stated he did not want to wait and states that he urinated after his Hutton was removed. I discussed at length coming back to emergency department for any acute concerns and encouraged PCP follow-up and follow-up with Urology. Patient has no questions or concerns upon discharge. Discharge Plan Departure Patient Disposition: Home Clinical Impression: Encounter for removal of urinary catheter Hutton catheter problem Qualifiers: Encounter type: initial encounter Qualified Code(s): T83.9XXA - Unspecified complication of genitourinary prosthetic device, implant and graft, initial encounter Discharge Date/Time: 05/13/19 19:26 Instructions: DI for Urinary Retention in Men Activity Restrictions/Additional Instructions: Today we removed her Hutton catheter per your request. As discussed, you did not want wait for urinalysis or further bladder scans Please come back to the emergency department for any acute concerns such as inability to urinate. Please follow up with primary care provider and your urologist in the next few days Prescriptions: No Action spironolactone [Aldactone] 100 MG tablet 100 mg PO QDAY Qty: 0 RF: 0 ferrous sulfate [Feosol] 325 mg (65 mg iron) tablet 325 mg PO BID Qty: 60 RF: 3 nicotine 14 mg/24 hr patch 24 hour 1 patch transdermal DAILY Qty: 21 RF: 1 Referrals: Ashley Montes DO [Primary Care Provider] -
== END 2019-05-13 19:26 | disposition home or self-care (01) ==
PROVIDERS: Emergency Provider Nurse Practitioner Family; PCP Family Medicine
DX: Z46.6 Encounter for fitting and adjustment of urinary device (principal); T83.9XXA Unspecified complication of genitourinary prosthetic device, implant and graft, initial encounter
CPT/HCPCS: 99282; 99283

== ENCOUNTER → 2019-05-25 10:24 | Outpatient (CLI) | payer OTHER, MEDICAID, SELFPAY ==
[2019-05-25 12:19] LABS: Add Manual Diff / Slide Review NO; Basophils Absolute Auto 200 /uL (0-100); Basophils Percent Auto 2.6 % (0-2); Eosinophils Absolute Auto 300 /uL (0-450); Eosinophils Percent Auto 3.3 % (2-4); Hematocrit 37.9 % (41-53); Hemoglobin 13.5 g/dL (13.5-17.5); Lymphocytes Absolute Auto 1100 /uL (1100-4500); Lymphocytes Percent Auto 11.8 % (25-40); Mean Corpuscular HGB Conc 35.5 % (30-36); Mean Corpuscular Hemoglobin 34.5 PG (26-34); Mean Corpuscular Volume 97.2 fL (80-100); Monocytes Absolute Auto 1300 /uL (0-900); Monocytes Percent Auto 15.2 % (3-14); Neutrophils Absolute Auto 6000 /uL (1500-7000); Neutrophils Percent Auto 67.1 % (50-75); Platelet Count 114 X10^3/uL (150-400); Red Cell Distribution Width 15.1 % (11.6-14.8); White Blood Cell Count 8.9 X10^3/uL (4.5-11.0)
[2019-05-25 12:20] LABS: Alanine Aminotransferase 10 IU/L (<50); Albumin 4.2 g/dL (3.5-5.0); Albumin Globulin Ratio 0.8 (1.0-2.8); Alkaline Phosphatase 121 U/L (38-126); Aspartate Aminotransferase 41 IU/L (17-59); Bilirubin Total 1.7 mg/dL (0.2-1.3); Blood Urea Nitrogen 7 mg/dL (9-20); Calcium 8.9 mg/dL (8.4-10.2); Carbon Dioxide 30 mmol/L (22-32); Chloride 92 mmol/L (98-107); Estimated Glomerular Filt Rate > 60.0 mL/min (>60); Globulin 5.3 g/dL (1.7-4.1); Glucose 102 mg/dL (70-100); HEMOLYSIS < 15 (0-50); Potassium 3.8 mmol/L (3.4-5.1); Sodium 135 mmol/L (137-145); Total Protein 9.5 g/dL (6.3-8.2)
== END ==
PROVIDERS: PCP Family Medicine; Visit Provider Family Medicine
DX: F10.288 Alcohol dependence with other alcohol-induced disorder (principal); I10 Essential (primary) hypertension; I85.00 Esophageal varices without bleeding; K42.0 Umbilical hernia with obstruction, without gangrene; Z71.6 Tobacco abuse counseling
CPT/HCPCS: 36415; 80053; 85025